=== PATIENT | male | born 1995 | race Caucasian/White ===

== ENCOUNTER 2018-07-13 10:27 | Emergency (ER) | payer OTHER ==
[2018-07-13 12:26] VITALS: BP 127/82
--- NOTE | 2018-07-13 12:50 | UC ---
General HPI - HPI Summary HPI Summary: States last night started getting sore throat, cough, fever and body aches. No N/V/D. Good PO. No rash. Needs a school note. Meds :Reviewed. - History of Current Complaint Chief Complaint: UCRespiratory Stated Complaint: FEVER,ACHES Time Seen by Provider: 07/13/18 12:38 Pain Intensity: 4 - Allergy/Home Medications Allergies/Adverse Reactions: Allergies Allergy/AdvReac Type Severity Reaction Status Date / Time No Known Allergies Allergy Verified 07/13/18 12:23 Home Medications: Home Medications Acetaminophen TAB* [Tylenol TAB*] 650 mg PO Q4H PRN 07/13/18 [History Confirmed 07/13/18] PMH/Surg Hx/FS Hx/Imm Hx Previously Healthy: Yes - Surgical History Surgical History: None - Social History Alcohol Use: Occasionally Substance Use Type: None Smoking Status (MU): Never Smoked Tobacco Review of Systems All Other Systems Reviewed And Are Negative: Yes Constitutional: Positive: Fever, Chills ENT: Positive: Sore Throat, Sinus Congestion Respiratory: Positive: Cough Physical Exam Triage Information Reviewed: Yes Appearance: Well-Appearing Vital Signs: Initial Vital Signs Temp 99.6 F 07/13/18 12:24 Pulse 100 07/13/18 12:24 Resp 16 07/13/18 12:24 BP 127/82 07/13/18 12:24 Pulse Ox 98 07/13/18 12:24 Vital Signs Reviewed: Yes ENT: Positive: Pharyngeal erythema, Nasal congestion, TMs normal Neck: Positive: Supple Respiratory: Positive: Lungs clear, Normal breath sounds Cardiovascular: Positive: RRR, No Murmur Skin Exam: Normal Course/Dx - Course Course Of Treatment: This is a 23 yr old with flu like symptoms. Assessment. Nontoxic appearing. Flu: Negative. Dx: Viral syndrome. Plan. Continue supportive care. Recommend fluids and ibuprofen as needed for pain/fever. If symptoms persist or worsen, call PCP for further evaluation or return to the ER - Diagnoses Provider Diagnosis: Viral syndrome Discharge - Sign-Out/Discharge Documenting (check all that apply): Patient Departure All imaging exams completed and their final reports reviewed: No Studies - Discharge Plan Condition: Good Disposition: HOME Patient Education Materials: Viral Syndrome (ED) Forms: *School Release Referrals: No Primary Care Phys,NOPCP [Primary Care Provider] - Additional Instructions: Influenza: negative Continue supportive care Recommend fluids and ibuprofen as needed for pain/fever If symptoms persist or worsen, call PCP for further evaluation or return to the ER - Billing Disposition and Condition Condition: GOOD Disposition: Home
[2018-07-13 13:02] LABS: Influenza A Molecular NEGATIVE (Negative); Influenza B Molecular NEGATIVE (Negative)
== END 2018-07-13 13:32 | disposition home or self-care (01) ==
LOC: UCCORT 10:27
DX: B34.9 Viral infection, unspecified (principal); J02.9 Acute pharyngitis, unspecified; R05 Cough
CPT/HCPCS: 99201; G0463